=== PATIENT | female | born 1960 | race Caucasian/White ===

== ENCOUNTER 2018-02-07 05:57 | Inpatient (IN) | payer BC ==
[2018-02-06 16:04] VITALS: BP 170/90
[2018-02-06 16:10] LABS: EOSINOPHILS % (AUTO) 1.2 % (0.0-8.0); HEMATOCRIT 41.2 % (36-48); LYMPHOCYTES % (AUTO) 14.7 % (21.0-51.0); MEAN CORPUSCULAR HEMOGLOBIN 32.3 pg (27.0-33.0); MEAN CORPUSCULAR HGB CONC 34.2 g/dL (32.0-36.0); MEAN CORPUSCULAR VOLUME 94.2 fL (79-99); MONOCYTES % (AUTO) 9.6 % (3.0-13.0); NEUTROPHILS % (AUTO) 73.5 % (40.0-77.0); PLATELET COUNT (AUTO) 218 K/uL (130-400); RED BLOOD CELL COUNT(AUTO) 4.37 MIL/uL (4.00-5.50); RED CELL DISTRIBUTION WIDTH 12.9 % (11.0-15.5); WHITE BLOOD COUNT (AUTO) 5.8 K/uL (4.8-10.8)
[2018-02-06 16:20] LABS: CREATININE 0.8 mg/dL (0.5-1.5)
[~2018-02-07] VITALS: Ht 152.4 cm; Wt 71.2 kg
[2018-02-07] VITALS (19 sets, daily range): BP systolic 71–146; BP diastolic 41–86
[~2018-02-07 05:57] MED LIST: LOSA25TA16 PO
[2018-02-07] MEDS ORDERED: CALDOLOR 800MG+NS 250ML 250 ML IV ONE (06:19)
[2018-02-07] MEDS ORDERED: LACTATED RINGERS 1000ML 1,000 ML IV ONE (06:21)
[2018-02-07] MEDS ORDERED: LIDOCAINE PF 2% 5ML ABBOJECT ONE (06:40)
[2018-02-07] MEDS ORDERED: FENTANYL CITRATE PF 50 MCG/1 ML 2ML VIAL ONE (06:41)
[2018-02-07] MEDS ORDERED: PROPOFOL 10 MG/ML 20ML VIAL IV ONE (06:41)
[2018-02-07] MEDS ORDERED: MIDAZOLAM HCL 1 MG/ML 2ML VIAL ONE (06:41)
[2018-02-07] MEDS: CEFAZOLIN SODIUM 1 GM VIAL ONE ×2 (06:42→09:30)
[2018-02-07] MEDS ORDERED: DURAMORPH PF1 MG/ML 10ML AMP IV ONE (06:43)
[2018-02-07] MEDS ORDERED: KETAMINE 50MG/ML SYRINGE 50 MG/ML DISP.SYRIN IV ONE (06:44)
[2018-02-07] MEDS ORDERED: MAGNESIUM SULFATE 1 GM/2 ML VIAL ONE (06:45)
[2018-02-07] MEDS ORDERED: SENSORCAINE/DEXT/PF 0.75% 2ML AMP IJ ONE (06:52)
[2018-02-07] MEDS ORDERED: MEPERIDINE-PF 25 MG/ML SYG ONE (08:50)
[2018-02-07] MEDS ORDERED: ROCURONIUM 10MG/1ML SYR 10 MG/ML ML ONE (09:05)
[2018-02-07] MEDS ORDERED: ONDANSETRON HCL 4 MG/2 ML VIAL ONE (09:36)
[2018-02-07] MEDS ORDERED: GLYCOPYRROLATE 1 MG/5 ML SYRINGE ONE (09:58)
[2018-02-07] MEDS ORDERED: NEOSTIGMINE 5MG/5ML SYR IV ONE (09:59)
[2018-02-07] MEDS ORDERED: EPHEDRINE SULFATE 50 MG/ML AMPULE ONE (10:03)
[2018-02-07] MEDS ORDERED: HYDROCODONE/ACETAMINOPHEN 5/325 MG TAB PO PRN ×4 (11:45→14:00)
[2018-02-07] MEDS ORDERED: ACETAMINOPHEN-CODEINE 300/30MG TAB PO PRN (11:45)
[2018-02-07] MEDS ORDERED: BISACODYL 10 MG SUPP.RECT RC PRN (11:45)
[2018-02-07] MEDS ORDERED: PROMETHAZINE HCL 25 MG/ML 1ML AMPULE IM PRN ×4 (11:45→16:45)
[2018-02-07] MEDS ORDERED: ONDANSETRON HCL 4 MG/2 ML VIAL IVP PRN ×3 (11:45→14:00)
[2018-02-07] MEDS ORDERED: MEPERIDINE-PF 75 MG/ML SYG IM PRN (11:45)
[2018-02-07] MEDS ORDERED: DiphenhydrAMINE HCL 50 MG/ML VIAL IVP PRN (14:00)
[2018-02-07] MEDS ORDERED: MORPHINE SULFATE 2 MG/ML 1ML SYG IVP PRN (14:00)
[2018-02-07] MEDS ORDERED: NALOXONE HCL 0.4 MG/1 ML ML IVP PRN (14:00)
[2018-02-07] MEDS ORDERED: ONDANSETRON HCL 4 MG/2 ML 8 MG in SODIUM CHLORIDE 0.9% 50 ML IVP NR (14:00)
[2018-02-07] MEDS ORDERED: EPHEDRINE SULFATE 50 MG/ML AMPULE IVP PRN (14:00)
[2018-02-07] MEDS ORDERED: METOCLOPRAMIDE 10 MG/2 ML VIAL IVP PRN (14:00)
[2018-02-07] MEDS: DEXTROSE 5 %-0.45 % NACL 1,000 ML IV PRN ×2 (14:03→23:12)
[2018-02-07] MEDS ORDERED: SCOPOLAMINE HYDROBROMIDE 1 EACH ADH..PATCH TD SCH (16:45)
[2018-02-07] MEDS: CALDOLOR 800MG+NS 250ML 250 ML IVPB SCH (19:14)
[2018-02-08] VITALS (7 sets, daily range): BP systolic 92–124; BP diastolic 57–73
[2018-02-08] MEDS: CALDOLOR 800MG+NS 250ML 250 ML IVPB SCH (03:35)
[2018-02-08 06:48] LABS: HEMATOCRIT 32.8 % (36-48); MEAN CORPUSCULAR HEMOGLOBIN 32.2 pg (27.0-33.0); MEAN CORPUSCULAR HGB CONC 33.9 g/dL (32.0-36.0); MEAN CORPUSCULAR VOLUME 94.8 fL (79-99); PLATELET COUNT (AUTO) 177 K/uL (130-400); RED BLOOD CELL COUNT(AUTO) 3.46 MIL/uL (4.00-5.50); RED CELL DISTRIBUTION WIDTH 12.8 % (11.0-15.5); WHITE BLOOD COUNT (AUTO) 10.7 K/uL (4.8-10.8)
[2018-02-08] MEDS: SIMETHICONE 80 MG TAB.CHEW PO PRN ×2 (08:48→19:58)
[2018-02-08] MEDS: DOCUSATE SODIUM 100 MG CAP PO PRN ×2 (08:48→19:58)
[2018-02-08] MEDS: IBUPROFEN 800 MG TAB PO SCH ×2 (12:09→19:59)
[2018-02-09 03:37] VITALS: BP 104/66
[2018-02-09] MEDS: IBUPROFEN 800 MG TAB PO SCH (03:56)
[2018-02-09 07:10] VITALS: BP 127/77
[2018-02-09] MEDS: DOCUSATE SODIUM 100 MG CAP PO PRN (08:55)
[2018-02-09] MEDS: SIMETHICONE 80 MG TAB.CHEW PO PRN (08:55)
[2018-02-09] MEDS ORDERED: LOSARTAN 50 MG TABLET PO SCH (09:00)
[2018-02-09 11:00] VITALS: BP 149/79
== END 2018-02-09 11:25 | disposition home or self-care (01) | DRG 743 ==
LOC: DAHIP 05:57 → EDSTATUS 07:00 → WSH 12:25
PROVIDERS: ADMIT Obstetrics & Gynecology; ATTEND Obstetrics & Gynecology
PROC: 0UT70ZZ Resection of Bilateral Fallopian Tubes, Open Approach (ICD-10-PCS; 2018-02-07)
PROC: 0UT90ZZ Resection of Uterus, Open Approach (ICD-10-PCS; principal; 2018-02-07 09:42)
PROC: 0UT20ZZ Resection of Bilateral Ovaries, Open Approach (ICD-10-PCS; 2018-02-07 09:42)
DX: N83.9 Noninflammatory disorder of ovary, fallopian tube and broad ligament, unspecified (principal); I10 Essential (primary) hypertension; Z98.51 Tubal ligation status; K21.9 Gastro-esophageal reflux disease without esophagitis
CPT/HCPCS: 36415; 82565; 85025; 85027; 86850; 86900; 86901; 88104; 88305; 88307; 96374; A4344; J0690; J1200; J1741; J2001; J2175; J2250; J2274; J2405; J2704; J2710; J3010; J3475; J3490; J7120